=== PATIENT | female | born 1950 | race African-American/Black ===

== ENCOUNTER 2019-11-28 21:17 | Inpatient (IN) | payer MEDICARE, BC ==
[~2019-11-28] VITALS: Ht 170.2 cm; Wt 69.9 kg
--- NOTE | 2019-11-28 21:30 | NUR ---
ED Nurse Note: PT WALKED IN TO ED C/O INTERMITTENT PALPITATION. PT STATED SHE HAD SYNCOPAL EPISODE X2 ON THURSDAY. PT DENIES CHEST PAIN OR PRESSURE. ELEVATED BP BUT OTHERWISE VSS. AAOX4, AMBULATORY ON ROOM AIR.
[2019-11-28] MEDS ORDERED: AMLODIPINE BESYL5 MG ORAL (21:38)
[2019-11-28] MEDS ORDERED: HYDROCHLOROTH12.5 MG ORAL (21:38)
[2019-11-28] MEDS ORDERED: LOSARTAN POTASS25 MG ORAL (21:38)
--- NOTE | 2019-11-28 21:40 | NUR ---
ED Nurse Note: blood drawn and sent to lab
[2019-11-28 21:58] VITALS: BP 163/73
[2019-11-28 22:00] LABS: BASOPHILS % (AUTO) 4.5 % (0.0-2.0); EOSINOPHILS % (AUTO) 0.5 % (0.0-3.0); HEMATOCRIT 41.1 % (37.0-47.0); LYMPHOCYTES % (AUTO) 32.3 % (20.0-45.0); MEAN CORPUSCULAR VOLUME 91 FL (80-99); MONOCYTES % (AUTO) 12.5 % (1.0-10.0); NEUTROPHILS % (AUTO) 50.2 % (45.0-75.0); PLATELET COUNT 227 K/UL (150-450); RED BLOOD COUNT 4.52 M/UL (4.20-5.40); RED CELL DISTRIBUTION WIDTH 12.1 % (11.6-14.8); WHITE BLOOD COUNT 7.6 K/UL (4.8-10.8)
--- NOTE | 2019-11-28 22:05 | NUR ---
ED Nurse Note: xray at bedside
[2019-11-28 22:16] LABS: ANION GAP 13 mmol/L (5-15); BLOOD UREA NITROGEN 11 mg/dL (7-18); CARBON DIOXIDE 24 MMOL/L (21-32); CHLORIDE 95 MMOL/L (98-107); CREATININE 0.9 MG/DL (0.55-1.30); POTASSIUM 3.6 MMOL/L (3.5-5.1); SODIUM 132 MMOL/L (136-145)
[2019-11-28 22:22] LABS: ALANINE AMINOTRANSFERASE 33 U/L (12-78); ALBUMIN 4.3 G/DL (3.4-5.0); ALBUMIN/GLOBULIN RATIO 1.1 (1.0-2.7); ALKALINE PHOSPHATASE 117 U/L (46-116); ASPARTATE AMINO TRANSFERASE 23 U/L (15-37); BILIRUBIN,TOTAL 0.3 MG/DL (0.2-1.0)
--- NOTE | 2019-11-28 22:37 | Emergency Room Report ---
History of Present Illness General Chief Complaint: Palpitations Source: Patient Present Illness HPI Disclaimer: Please note that this report is being documented using [email or web address] technology. This can lead to erroneous entry secondary to incorrect interpretation by the dictating instrument. HPI: 69-year-old female presents from home due to palpitations. She states for the past 2 weeks she has had intermittent palpitations. 5 days ago she had an episode of syncope at rest. He continued to have palpitations today. She denied any chest pain nausea vomiting. No shortness of breath. No fevers or coughing. She is compliant with her hypertension medications. She is currently being treated for a sinus infection as well. PMH: Hypertension PSH: Reviewed Social Hx: Occasional drinker denied illicit drug use Allergies: Coded Allergies: No Known Allergies (Unverified , 11/28/19) COVID-19 Screening Contact w/high risk pt: No Recent Travel to affected area: No Experienced COVID-19 symptoms?: No Patient History Now: No Nursing Documentation-PMH Hx Hypertension: Yes Review of Systems All Other Systems: negative except mentioned in HPI Physical Exam Vital Signs Date Time Temp Pulse Resp B/P (MAP) Pulse Ox O2 Delivery O2 Flow Rate FiO2 11/28/19 21:26 97.5 90 18 152/75 (100) 93 Room Air Sp02 EP Interpretation: reviewed, normal General Appearance: well appearing, no apparent distress Head: normocephalic, atraumatic Eyes: bilateral eye PERRL, bilateral eye EOMI ENT: hearing grossly normal, moist mucus membranes Neck: full range of motion, supple Respiratory: lungs clear, normal breath sounds, no rhonchi, no respiratory distress, no retraction, no wheezing Cardiovascular #1: normal peripheral pulses, regular rate, rhythm, no murmur Gastrointestinal: non tender, soft, non-distended, no guarding Musculoskeletal: other - No swelling or calf tenderness noted bilaterally Neurologic: alert, oriented x3, no focal defects Skin: normal color, warm/dry Medical Decision Making Diagnostic Impression: Primary Impression: Syncope Additional Impression: Palpitations ER Course MDM: 69-year-old female presented for palpitations and 2 episodes of syncope. differential diagnosis: Arrhythmia, dehydration, anxiety, less likely ACS or intracranial hemorrhage. I did consider PE as well. Clinical course Patient placed on stretcher. On ticket manager. After initial history and physical I ordered labs, chest x-ray and EKG. Laboratory studies showed no significant abnormalities. I added on a d-dimer due to patient's syncope and age which was mildly elevated. CT angiogram was ordered and showed no definite large PE. EKG did show sinus rhythm. On monitor patient did have intermittent PVCs. Due to her 2 episodes of syncope with palpitations will place on observation telemetry. Diagnosis -syncope, palpitations Patient to be admitted to the telemetry floor for further observation and treatment. EKG Diagnostic Results EP Interpretation: Yes Rate: normal Rhythm: NSR ST Segments: other - Nonspecific T wave abnormality Rhythm Strip Diag. Results EP Interpretation: yes Rate: 86 Rhythm: NSR, other - Intermittent PVCs Chest X-Ray Diagnostic Results Chest X-Ray Diagnostic Results : Chest X-Ray Ordered: Yes # of Views/Limited/Complete: 1 View Indication: Shortness of Breath EP Interpretation: Yes Interpretation: no consolidation, no effusion, no pneumothorax Impression: No acute disease Electronically Signed by: Daryl Blanchard MD Last Vital Signs Date Time Temp Pulse Resp B/P (MAP) Pulse Ox O2 Delivery O2 Flow Rate FiO2 11/28/19 21:58 97.7 73 18 163/73 97 Room Air Status: unchanged Disposition: ADMITTED INPATIENT Condition: Serious Referrals: NON PHYSICIAN (PCP) Daryl Blanchard M.D. Nov 28, 2019 22:36
--- NOTE | 2019-11-28 23:01 | NUR ---
ED Nurse Note: pt home meds placed in lock.
[2019-11-28 23:56] VITALS: BP 150/67
--- NOTE | 2019-11-29 | NUR ---
ED Nurse Note: pt ambulated to the bathroom
[2019-11-29] MEDS ORDERED: Omnipaque 350 100ml vial INJ PRN (00:45)
--- NOTE | 2019-11-29 01:05 | NUR ---
ED Nurse Note: pt explained of ct w/ contrast. pt verbalized understanding. consent signed
--- NOTE | 2019-11-29 01:12 | NUR ---
ED Nurse Note: pt went for ct
[2019-11-29] MEDS: NS w/KCl 20mEq 1000ml 1,000 ML IV SCH ×2 (01:52→13:01)
[2019-11-29] MEDS: Aspirin EC 81mg tab ORAL SCH ×2 (01:52→09:42)
--- NOTE | 2019-11-29 01:57 | Diagnostic Imaging Report ---
EXAM: CT Angiography Chest With Intravenous Contrast CLINICAL HISTORY: SOB TECHNIQUE: Axial computed tomographic angiography images of the chest with intravenous contrast. CTDI is 4 mGy and DLP is 129 mGy-cm. One or more of the following dose reduction techniques were used: automated exposure control, adjustment of the mA and/or kV according to patient size, use of iterative reconstruction technique. MIP reconstructed images were created and reviewed. COMPARISON: No relevant prior studies available. FINDINGS: Pulmonary arteries: No filling defects. Apparent filling defects in the lower lobe subsegmental branches are likely due to significant motion artifact. Aorta: No thoracic aortic aneurysm. Lungs: No mass. Subtle groundglass opacity in the left upper lobe. Pleural space: No pneumothorax. No effusion. Heart: No cardiomegaly. No pericardial effusion. Bones/joints: No acute fracture or dislocation. Soft tissues: Unremarkable. Lymph nodes: No enlarged lymph nodes. IMPRESSION: Significant motion artifact limits evaluation. No convincing pulmonary emboli. Subtle groundglass opacity in the left upper lobe, likely infectious/inflammatory process.
[2019-11-29 03:00] VITALS: BP 139/74
--- NOTE | 2019-11-29 03:58 | NUR ---
ED Nurse Note: am lab blood drawn and sent to lab
[2019-11-29 04:00] VITALS: BP 133/81
--- NOTE | 2019-11-29 04:17 | NUR ---
NURSE NOTES: Received report from Jamaal Preciado RN Pt will come up at 440am
--- NOTE | 2019-11-29 04:18 | NUR ---
ED Nurse Note: report given to Tino DE SOUZA. Per RN, bring patient up at 0440.
--- NOTE | 2019-11-29 04:40 | NUR ---
TRANSFER TO FLOOR: Patient transferred to [facility] via [facility] in stable condition accompanied by 1 rn 1tech as ordered, per dr. Miranda . Report given to Tino DE SOUZA. Belongings sent with patient.
[2019-11-29 04:51] LABS: ANION GAP 13 mmol/L (5-15); BLOOD UREA NITROGEN 7 mg/dL (7-18); CALCIUM 9.7 MG/DL (8.5-10.1); CARBON DIOXIDE 23 MMOL/L (21-32); CHLORIDE 101 MMOL/L (98-107); CREATININE 0.8 MG/DL (0.55-1.30); POTASSIUM 3.9 MMOL/L (3.5-5.1); SODIUM 137 MMOL/L (136-145)
[2019-11-29 05:02] LABS: ALANINE AMINOTRANSFERASE 31 U/L (12-78); ALBUMIN 3.7 G/DL (3.4-5.0); ALKALINE PHOSPHATASE 102 U/L (46-116); ASPARTATE AMINO TRANSFERASE 21 U/L (15-37); BILIRUBIN,TOTAL 0.4 MG/DL (0.2-1.0)
--- NOTE | 2019-11-29 05:40 | NUR ---
NURSE NOTES: Pt received in stable condition, valuables checked at bedside, pt denies chest pain or palpitations, monitoring and evaluation advisor applied. No distress at this time,. alert and oriented x4, oriented to room, unit, call light in reach, belongings at bedside, Bed locked and lowest position. will continue to monitor
--- NOTE | 2019-11-29 07:38 | NUR ---
HAND-OFF: Report given to NOLVIA Antoine.
--- NOTE | 2019-11-29 07:45 | NUR ---
NURSE NOTES: pt in bed just had breakfast. pt AOx4. pt on teletypesetter monitor, no signs of cardiac or respiratory distress at this time. Call light within reach, bed in lowest position and locked, side rails up x3. Will continue to monitor pt.
[2019-11-29 08:00] VITALS: BP 124/84
--- NOTE | 2019-11-29 09:01 | Diagnostic Imaging Report ---
Indication: Shortness of breath Technique: One view of the chest Comparison: none Findings: Lungs and pleural spaces are clear. Heart size is normal. Impression: No acute process
[2019-11-29] MEDS: Losartan 25mg tab ORAL SCH (09:41)
[2019-11-29] MEDS: Heparin 5000 units/ml inj SUBQ SCH ×2 (09:45→22:57)
--- NOTE | 2019-11-29 09:57 | NUR ---
*-* NO INSURANCE INFORMATION IN THE BAR UNABLE TO SEND CLINICALS OR REVIEWS *-*
--- NOTE | 2019-11-29 11:37 | Diagnostic Imaging Report ---
Indication: Syncope and palpitations Technique: Grayscale and duplex images of the extracranial carotid and vertebral circulation Comparison: none Findings: Bilaterally, grayscale and duplex images demonstrate atherosclerotic plaquing resulting in less than 50% diameter narrowing. Patent bilateral vertebral arteries, antegrade flow. Normal Doppler flow velocities and waveforms. Impression: Less than 50% diameter stenosis bilaterally All stenosis was measured based on the NASCET criteria. Velocity criteria are extrapolated from diameter data as defined by the Society of radiologists in ultrasound consensus conference. Radiology 2003:229; 340-346
--- NOTE | 2019-11-29 15:30 | NUR ---
NURSE NOTES: doctor Ruth no order yet for covid testing, he will address it after he assess her.
--- NOTE | 2019-11-29 19:46 | NUR ---
HAND-OFF: Report given to Malou/brigette, pt in stable condition.
--- NOTE | 2019-11-29 19:56 | NUR ---
NURSE NOTES: Received report from NOLVIA Antoine. Patient is awake lying semi-rush's; resting comfortably. No signs of acute distress noted; denies pain at this time. AOx4; able to make needs known. Ambulates independently. Checked IV site, line, and IV rate; patent and running. No erythema, bleeding, or infiltration noted. Bed at lowest position, brakes on, siderails up x2. Call light within reach. Will continue to monitor.
[2019-11-29 21:00] VITALS: BP 149/72
--- NOTE | 2019-11-29 21:19 | NUR ---
NURSE NOTES: Called Dr. Miranda regarding patient's request for Flonase/nasal spray medication. Awaiting callback.
[2019-11-29] MEDS ORDERED: Lexiscan 0.4mg/5ml syringe IV PRN (21:42)
[2019-11-29] MEDS ORDERED: Flonase Nasal Inhaler 16gm NASAL SCH (22:30)
[2019-11-30] VITALS: BP 125/69
--- NOTE | 2019-11-30 00:45 | Consultation ---
HISTORY & PHYSICAL DATE OF ADMISSION: 11/29/2019 REASON FOR ADMISSION: Syncope. HISTORY OF PRESENT ILLNESS: This is a 69-year-old female. She has a history of hypertension. She has had palpitations for the past week or two with no chest pain. About 5 days ago, she apparently had an episode of syncope. She describes it as walking to the bedroom, feeling some heaviness and spinning of her head and then falling forward and passing out backward. She may have struck her head. She was found almost immediately by her house keeper. There was no subsequent sequelae. The patient felt well subsequently but has had increasing palpitations and difficulty with congestion and breathing today. She notes that her nose feels nose and upper chest feels tight and her nose has been somewhat draining but minimally with clear discharge. She has not had any fevers, chills, or cough. She is already on treatment for sinus infection. PAST MEDICAL HISTORY: As outlined above. ALLERGIES: None. MEDICATIONS: Reviewed and reconciled. SOCIAL HISTORY: Negative for alcohol or substance abuse. There is a smoking history in the past. REVIEW OF SYSTEMS: No loss of vision or hearing. No history of asthma or abnormal blood clotting. No history of seizure or stroke. No history of thyroid disorder or diabetes. No change in bowel habits. No history of kidney disorder. No history of bleeding abnormalities or abnormal clotting. No history of arthritic pain. The patient describes herself as usually quite active and without any exertional chest pain, palpitations, or limitations in the past. PHYSICAL EXAMINATION: VITAL SIGNS: Blood pressure 153/75, pulse 90, respiratory rate 18. HEENT: Conjunctivae pink. Oropharynx clear. No sinus tenderness. LUNGS: Clear. CARDIAC: Regular. Normal S1, S2 with no murmur. ABDOMEN: Soft and nontender. EXTREMITIES: No edema. NEUROLOGIC: Nonfocal. No calf tenderness. LABORATORY AND DIAGNOSTIC DATA: Chest x-ray with no acute process. CT angio of the chest without pulmonary embolus, but motion artifact suggest the possibility of left upper lobe infiltrate. EKG with sinus rhythm, nonspecific T-wave abnormality. Monitor reveals occasional nonsustained ventricular ectopic. Potassium is 3.6. Labs otherwise within normal limits. Troponin is negative. IMPRESSION: 1. Syncopal episode several days ago suggestive of vertiginous etiology, nonsustained ventricular ectopy. 2. History of hypertension. 3. Possible sinusitis. PLAN: 1. Cardiac monitoring. 2. additional potassium. 3. Check magnesium. 4. Serial troponin. 5. Thyroid panel. 6. CAT scan of the sinuses and brain. 7. Carotid duplex scan. 8. Echocardiogram. 9. Noninvasive assessment of coronary flow reserve. 10. Further recommendations to follow. 11. Follow up chest radiograph. Armando Miranda M.D. DR: Markie JOB#: [id number] CC: GRAHAM
--- NOTE | 2019-11-30 00:45 | Progress Note ---
DATE: 11/29/2019 CARDIOLOGY PROGRESS NOTE SUBJECTIVE: Patient has no chest pain or shortness of breath. Monitored rhythm, sinus with rare ventricular ectopics. Troponin levels are negative. Echocardiogram revealed normal ejection fraction, possible pericardial echo-free space with small effusion, wylt-gv-ckylnxst mitral regurgitation, and mild tricuspid regurgitation with normal PA systolic pressures. LABORATORY DATA: CAT scan of the sinus is pending. Venous duplex scan negative for DVT. PHYSICAL EXAMINATION: VITAL SIGNS: Blood pressure 133/81, heart rate 68, respirations 18, afebrile. HEENT: No sinus tenderness. Some sinus drainage. LUNGS: Clear. CARDIAC: Regular. Normal S1, S2. A 1/6 systolic apical murmur. ABDOMEN: Soft. EXTREMITIES: No edema. IMPRESSION: 1. Vertiginous syncope, possible sinus infection. 2. Nonsustained ventricular ectopy. 3. Possible infiltrative process, left upper lobe versus artifact. PLAN: 1. Follow up CAT scan of the head and sinuses. 2. Two-view chest x-ray to reassess left lung. 3. Myocardial perfusion scan to assess coronary flow reserve. 4. Continued anti-platelet therapy. 5. Follow up thyroid panel. Armando Miranda M.D. DR: CARLINE JOB#: [id number] CC:
[2019-11-30 04:00] VITALS: BP 133/70
--- NOTE | 2019-11-30 07:34 | NUR ---
HAND-OFF: Report given to NOLVIA Lujan. Patient is awake lying semi-rush's; resting comfortably. In stable condition.
[2019-11-30 08:00] VITALS: BP 135/81
[2019-11-30 09:02] LABS: ANION GAP 11 mmol/L (5-15); BLOOD UREA NITROGEN 10 mg/dL (7-18); CARBON DIOXIDE 26 MMOL/L (21-32); CHLORIDE 106 MMOL/L (98-107); CHOLESTEROL 129 MG/DL (< 200); CREATININE 0.8 MG/DL (0.55-1.30); HDL CHOLESTEROL 83 MG/DL (40-60); POTASSIUM 4.1 MMOL/L (3.5-5.1); SODIUM 143 MMOL/L (136-145); TRIGLYCERIDES 35 MG/DL (30-150)
[2019-11-30] MEDS: Aspirin EC 81mg tab ORAL SCH (09:40)
[2019-11-30] MEDS: Losartan 25mg tab ORAL SCH (09:41)
[2019-11-30] MEDS: Heparin 5000 units/ml inj SUBQ SCH (09:56)
--- NOTE | 2019-11-30 10:19 | Diagnostic Imaging Report ---
Indication: Reason For Exam: COUGH Technique: One view of the chest Comparison: 11/28/2019 Findings: Heart size and mediastinal contours within normal limits for AP technique and stable compared to the prior exam. No focal airspace consolidation, pleural effusion or pneumothorax. No radiographic evidence to suggest pulmonary edema. There are degenerative changes in the spine. Amorphous foci of mineralization/calcification projecting adjacent to the left humeral head. No acute osseous abnormality. IMPRESSION: No radiographic evidence of acute cardiopulmonary disease. Findings suggesting mild calcific tendinitis of the left shoulder.
--- NOTE | 2019-11-30 10:41 | NUR ---
RADIOLOGY DEPT., CHEST X-RAY DONE BY AR DUNNE
--- NOTE | 2019-11-30 10:59 | NUR ---
CASE MANAGEMENT:INITIAL REVIEW 69YR OLD FEMALE FROM HOME CC: PALPITATIONS/ PASSED OUT TWICE SI: SYNCOPE . PALPITATION 97.5 90 18 152/75 93% ON RA D-DIMER 0.90 NA+ 132 CL-95 BG 117 ALKP 117 T.PROTEIN 8.3 IS:K-DUR PO X1 KCL.NS @100ML/HR X1 NORVASC PO QD COZAAR PO QD HEPARIN SQ BID FLONASE NS QD CHEST X-RAY- No acute process CHEST CTA-infectious/inflammatory process. DUPLEX UPPER EXT ARTERY-Bilaterally, grayscale and duplex images demonstrate atherosclerotic plaquing resulting in less than 50% diameter narrowing. 2D ECHO- \: 2E TELE UNIT DCP: HOME WHEN STABLE CASE MANAGEMENT: REVIEW 11/30/19 SI: SYNCOPE . PALPITATION 98.0 60 136 75/61 97% ON RA HDL 83 IS:IV ROCEPHIN Q24HR NORVASC PO QD COZAAR PO QD HEPARIN SQ BID FLONASE NS QD CHEST X-RAY-mild calcific tendinitis of the left shoulder. \: 2E TELE UNIT DCP: HOME WHEN STABLE ~PLAN: COVID-19- PENDING SPUTUM CX-PENDING START ON IV ABX LEXISCAN THIS AM NPO CT MAXILLOFACIAL
--- NOTE | 2019-11-30 11:40 | Diagnostic Imaging Report ---
Indication: Facial pain. Possible sinusitis Technique: CT maxillofacial was performed utilizing automated exposure control without intravenous contrast material. Axial and coronal images were generated. CT dose: Total DLP 347.6 mGycm; CTDI vol 18.3 mGy Comparison: None Findings: No acute fracture is identified. The mandible, midface and nasal bones are intact. The orbits are unremarkable. Paranasal sinuses and mastoid air cells are clear. The nasal septum is midline with a small leftward spur. Mild mucosal thickening of the inferior turbinates. Visualized intracranial compartment is unremarkable. IMPRESSION: * No acute facial bone fracture. * Mastoid air cells and paranasal sinuses are clear. * Imaged intracranial compartment grossly unremarkable. The CT scanner at [facility] is accredited by the [employer] and the scans are performed using protocols designed to limit radiation exposure to as low as reasonably achievable to attain images of sufficient resolution adequate for diagnostic evaluation.
[2019-11-30 12:00] VITALS: BP 130/77
[2019-11-30] MEDS ORDERED: cefTRIAXone 1 GM in D5W 55 ML IVPB SCH (12:00)
[2019-11-30 16:00] VITALS: BP 123/75
--- NOTE | 2019-11-30 18:29 | Consultation ---
DATE OF CONSULTATION: 11/30/2019 INFECTIOUS DISEASES CONSULTATION CONSULTING PHYSICIAN: Carlito Collins MD. REFERRING PHYSICIAN: Armando Miranda MD. REASON FOR CONSULTATION: Sinusitis. HISTORY OF PRESENTING ILLNESS: This is a 69-year-old lady with history of hypertension, who came in with palpitations and she had an episode of syncope. She was walking to the bathroom and she felt some heaviness and spinning of her head and then she fell forward and passed out backward. She states she has some sinusitis recently. An Infectious Diseases consultation has been obtained for antibiotics. PAST MEDICAL HISTORY: History of hypertension. SOCIAL HISTORY: She does not smoke. She drinks alcohol socially. No history of drug use. FAMILY HISTORY: Noncontributory. REVIEW OF SYSTEMS: RESPIRATORY: No fever, chills, cough, shortness of breath, or chest pain. CARDIAC: No chest pain. She had palpitation. She had dizziness. She had syncope. GASTROINTESTINAL: No nausea, no vomiting, no abdominal pain, no diarrhea. MEDICATIONS: As an inpatient, she is on fluticasone, regadenoson, subcutaneous heparin, losartan, amlodipine, aspirin, Tylenol. ALLERGIES: No known drug allergies. PHYSICAL EXAMINATION: VITAL SIGNS: Temperature of 98, T-max of 98.2, pulse of 136, respiratory rate 18, blood pressure 75/61, O2 saturation of 97%. HEENT: Pupils are equally reactive to light and accommodation. Mouth appears clean without thrush. NECK: Supple. No adenopathy. No JVD. CARDIOVASCULAR: She is tachycardic. No murmurs. LUNGS: Clear to auscultation bilaterally. No crackles. No wheezes. ABDOMEN: Soft, nontender. No organomegaly. EXTREMITIES: No cyanosis, no clubbing, no edema. LABORATORY AND DIAGNOSTIC DATA: White count 7.6, hemoglobin 14, hematocrit 41.1, MCV 91, platelet count of 227, with neutrophils 50%. Sodium 143, potassium 4.1, chloride 106, bicarb 26, BUN 10, and creatinine 0.8, glucose 91, calcium 10. On 11/29/2019, total protein 7.4, albumin 3.2. Cholesterol of 129. D-dimer of 0.9. Chest x-ray is showing unremarkable. CT chest angiogram showing ground-glass opacity in the left upper lobe, likely infectious, inflammatory process, no acute process. A 2D echo showing mild to moderate mitral regurgitation, mild tricuspid regurgitation. ASSESSMENT: This is a 69-year-old lady with history of who comes in with palpitations and syncope and had: 1. Recent sinusitis. 2. We would like to rule out COVID pneumonia as a possibility. 3. . PLAN: 1. We will order COVID-19 testing. 2. We will order sputum for Gram stain and culture. 3. We will start the patient on ceftriaxone. 4. We will follow up cultures. 5. We would recommend isolation. I would like to thank Dr. Miranda for this consultation. Carlito Collins M.D. DR: Asnley JOB#: [id number] CC: Armando Miranda M.D.
[2019-11-30 19:09] VITALS: BP 123/78
--- NOTE | 2019-11-30 21:00 | NUR ---
Discharge Notes: Patient is being discharged from medical care. Awake, alert and oriented x4 . After care instructions, including referral to community resources were given. Patient verbalized understanding of After care instructions; at this time patient does not request medications, equipment or placement. All medical devices such as IV and ID band were removed. Patient ambulated out with all personal belongings with steady gait.
--- NOTE | 2019-12-01 08:47 | Diagnostic Imaging Report ---
Indication: Hypertension and syncope Technique: IV administration 10.7 mCi 99m technetium Myoview. Resting SPECT images obtained of the heart. Stress portion of the test was canceled by referring physician Comparison: none Findings: There is a perfusion defect involving the inferoseptal wall near the apex. No left ventricular chamber dilatation. Impression: Unable to assess for ischemia due to absence of stress exam Inferoseptal perfusion defect near the apex indicates an infarct
--- NOTE | 2019-12-01 17:53 | Discharge Summary ---
Discharge Summary Discharge Summary _ DATE OF ADMISSION: 11/28/2019 DATE OF DISCHARGE: 11/30/2019 DISCHARGED BY: REASON FOR ADMISSION: 69 years old female with past medical history of hypertension, presented with palpitations for the last week or two. She denied chest pain. About 5 days ago she had episode of syncope. She described as walking to the bedroom and feeling some heaviness and spinning of her head and then she fall forward and passed out . Patient possibly struck her head. Patient was found almost immediately by her commercial intelligence manager. There was no subsequent sequela. Patient subsequently felt better , but had persistent intermittent palpitations and difficulty with breathing and congestion the day prior to presentation. She reported that her upper chest felt tight , her nose had minimal clear drainag. She denied fever and chills. No cough. Patient prior started on treatment for sinus infection. Chest x-ray revealed no acute cardiopulmonary pathology. CT angiogram of the chest revealed no evidence of pulmonary emboli. Motion artifact suggested possibility of left upper lobe infiltrate. EKG revealed sinus rhythm with nonspecific T wave abnormality. Potassium 3.6. Labs otherwise within normal limits. Troponin was negative. Patient subsequently admitted for syncopal episode , hypertension ,possible sinusitis. CONSULTANTS: ID specialist Dr. Collins [facility] COURSE: Patient admitted to telemetry floor. Patient started on empiric antibiotic. Patient undergone maxillofacial CT scan, which revealed no acute facial bone fracture. Mastoid air cells and paranasal sinuses were clear. Echocardiogram demonstrated preserved ejection fraction of 60% with no evidence of wall motion abnormality. Right ventricular systolic pressure of 25. Troponin x2 were negative. Lipid panel was stable. TSH within normal limits. Telemetry consistently show sinus rhythm or low sinus tachycardia with some nonsustained ventricular ectopy. Antiplatelet therapy with aspirin continued. Carotid duplex revealed less than 50% stenosis bilaterally. Patient subsequently undergone myocardial perfusion scan test , which revealed inferior septal perfusion defect near the apex, suggestive of prior infarct. Patient only undergone resting SPECT images. Stress portion was canceled. Chest x-ray demonstrated findings suggestive of calcific tendinitis of the left shoulder , no evidence of acute cardiopulmonary pathology. DVT prophylaxis provided. Blood pressure was managed with calcium channel ingrid and angiotensin receptor ingrid and remained stable. Flonase continued. Patient clinically stabilized and was ready for discharge home FINAL DIAGNOSES: Vertiginous syncope, Possible sinus infection Nonsustained ventricular ectopy Hypertension DISCHARGE MEDICATIONS: See Medication Reconciliation list. DISCHARGE INSTRUCTIONS: Patient was discharged home. Follow-up with a primary care provider in 1 week. I have been assigned to dictate discharge summary for this account. I was not involved in the patient's management. Gabbie Mustafa NP Dec 01, 2019 17:53
== END 2019-11-30 21:00 | disposition home or self-care (01) | DRG 149 ==
LOC: EMR 22:00 → 2E 22:54 → OBSVTOIN 22:54 → EDBEDREQ 11-29 03:32 → 2E 11-29 05:06
DX: R42 Dizziness and giddiness (principal); J32.9 Chronic sinusitis, unspecified; I49.3 Ventricular premature depolarization; I10 Essential (primary) hypertension; R55 Syncope and collapse; I34.0 Nonrheumatic mitral (valve) insufficiency; I36.1 Nonrheumatic tricuspid (valve) insufficiency
CPT/HCPCS: 36415; 70486; 71045; 71275; 78451; 80048; 80053; 80061; 83735; 83880; 84443; 84484; 85025; 85379; 87635; 93005; 93306; 93880; 99285; J8499